=== PATIENT | female | born 1955 | race Caucasian/White ===

== ENCOUNTER 2018-08-22 08:18 | Outpatient (CLI) | payer OTHER | END 2018-08-22 08:19 | disposition home or self-care (01) | LOC: C.CARD 08:18 | DX: R07.9 Chest pain, unspecified (principal); E11.9 Type 2 diabetes mellitus without complications ==

== ENCOUNTER 2018-10-19 10:48 | Outpatient (CLI) | payer OTHER | END 2018-10-19 10:49 | disposition home or self-care (01) | LOC: C.MRIC 10:49 ==

== ENCOUNTER 2018-11-21 08:07 | Outpatient (CLI) | payer OTHER | END 2018-11-21 08:08 | disposition home or self-care (01) | LOC: C.PAT 08:07 | DX: R07.89 Other chest pain (principal); I10 Essential (primary) hypertension; E11.9 Type 2 diabetes mellitus without complications ==

== ENCOUNTER 2018-11-23 06:56 | Day surgery (SDC) | payer OTHER ==
[2018-11-21 08:33] VITALS: BMI 30.1
[2018-11-23] MEDS ORDERED: Nitroglycerin 50mg in D5W 50 MG/250 ML BOTTLE IV ONE (08:53)
[2018-11-23] MEDS ORDERED: Verapamil 2 ML ONE (08:53)
[2018-11-23] MEDS ORDERED: Iohexol 350mg/ml 100 ML ONE (08:56)
[2018-11-23] MEDS ORDERED: Midazolam 2 MG/2 ML VIAL ONE (09:00)
[2018-11-23] MEDS ORDERED: Lidocaine 2% MPF (5 ml) Inj ONE (09:00)
[2018-11-23] MEDS ORDERED: Iodixanol 320 MG/ML 100 ML BOTTLE IV ONE (09:40)
--- NOTE | 2018-11-26 05:44 | CARDCATH ---
PROCEDURE DATE: 11/23/2018 PROCEDURES: 1. Left heart catheterization. 2. Coronary angiogram. CLINICAL INDICATIONS: 1. Chest pain. 2. Abnormal stress test. 3. Hypertension. 4. Diabetes. 5. Hyperlipidemia. REFERRING PHYSICIAN: Viktor Glover MD PERFORMING PHYSICIAN: Loco Paulino MD PROCEDURE PERFORMED: After informed consent, the patient was prepped and draped in the usual sterile fashion. Lidocaine 2% was given in the right wrist for local anesthesia. Using micropuncture technique, a 6-Malaysian sheath was introduce into right radial artery. A JR4 6-Malaysian diagnostic catheter was inserted into left ventricle. LVEDP was measured. Contrast was injected and left ventricular angiogram was done. Then, the catheter was pulled back across the aortic valve. Gradient across the aortic valve was measured. It was difficult to cannulate the right coronary artery with JR4 diagnostic catheter. The catheter was exchanged to 6-Malaysian catheter. catheter was engaged into right coronary artery. Contrast was injected and right coronary angiogram was done. Then, the catheter was exchanged into 6-Malaysian Wyocena catheter. Wyocena catheter was engaged into left main coronary artery. Contrast was injected and left coronary angiogram was done. The patient tolerated the procedure well. Postprocedure, Terumo radial band was applied to the right wrist with excellent hemostasis. Radiological supervision and radiological interpretation of the thermal imaging was done. FINDINGS: 1. Left main coronary artery is patent. 2. Proximal and mid LAD and diagonal branch are patent. Distal LAD has a diffuse diabetic pattern narrowing. 3. Left circumflex and obtuse marginal branch are patent. 4. Right coronary artery is dominant and patent. 5. LV ejection fraction approximately 60%. No wall motion abnormalities noted. EDP is 18. No gradient across the aortic valve. IMPRESSION: 1. Nonobstructive coronaries as described above. 2. Normal left ventricular systolic function. PLAN: Recommend medical management. Loco Paulino MD
== END 2018-11-23 14:35 | disposition home or self-care (01) ==
LOC: C.CATHLAB 06:56
PROVIDERS: ATTEND Internal Medicine Cardiovascular Disease
DX: I25.10 Atherosclerotic heart disease of native coronary artery without angina pectoris (principal); I10 Essential (primary) hypertension; E11.9 Type 2 diabetes mellitus without complications; E78.5 Hyperlipidemia, unspecified
CPT/HCPCS: 93458; 96360; 99152; 99153; C1769; C1887; J1644; J2001; J2250; J3010; Q9967

== ENCOUNTER → 2018-12-04 | Outpatient (CLI) | payer OTHER | LOC: C.DEXAIC 11:16 | DX: M81.0 Age-related osteoporosis without current pathological fracture (principal) ==